=== PATIENT | female | born 1980 | race Hispanic/Latino ===

== ENCOUNTER 2021-01-17 14:45 | Emergency (ER) | payer OTHER ==
[~2021-01-17] VITALS: Ht 152.4 cm; Wt 99.8 kg
[2021-01-17 15:16] VITALS: BP 103/47
[2021-01-17 15:20] LABS: BASOPHILS % (AUTO) 0.4 % (0.0-5.0); EOSINOPHILS % (AUTO) 0.6 % (0.0-8.0); HEMATOCRIT 39.1 % (36-48); LYMPHOCYTES % (AUTO) 30.5 % (21.0-51.0); MEAN CORPUSCULAR HEMOGLOBIN 27.5 pg (27.0-33.0); MEAN CORPUSCULAR HGB CONC 32.2 g/dL (32.0-36.0); MEAN CORPUSCULAR VOLUME 85.2 fL (79-99); NEUTROPHILS % (AUTO) 62.9 % (40.0-77.0); PLATELET COUNT (AUTO) 296 K/uL (130-400); RED BLOOD CELL COUNT(AUTO) 4.59 MIL/uL (4.00-5.50); WHITE BLOOD COUNT (AUTO) 11.3 K/uL (4.8-10.8)
[2021-01-17 15:27] LABS: APPEARANCE,URINE Clear (CLEAR); BILIRUBIN,URINE Negative (NEGATIVE); COLOR,URINE Yellow (YELLOW); GLUCOSE, URINE (UA) Negative (NEGATIVE); KETONES,URINE Trace mg/dL (NEGATIVE); LEUKOCYTE ESTERASE ,URINE Trace (NEGATIVE); NITRATE,URINE Negative (NEGATIVE); OCCULT BLOOD,URINE Negative (NEGATIVE); PH,URINE 6.5 (5.0-8.0); PROTEIN,URINE Negative (NEGATIVE)
[2021-01-17 15:30] LABS: CREATININE 0.6 mg/dL (0.5-1.5); POTASSIUM 3.7 mmol/L (3.5-5.1)
[2021-01-17 15:34] LABS: ALBUMIN 3.6 g/dL (3.5-5.0); BILIRUBIN,TOTAL 0.3 mg/dL (0.2-1.0); TOTAL PROTEIN, SERUM 7.9 g/dL (6.0-8.3)
[2021-01-17 15:35] LABS: HCG,QUAL RESULT NEGATIVE (NEGATIVE)
[2021-01-17 15:38] LABS: BACTERIA,URINE Few /HPF (None Seen); RBC,URINE 0-1 /HPF (0-1)
[2021-01-17 15:39] LABS: MUCUS,URINE Rare LPF (None Seen); SQUAMOUS EPITHELIAL CELL,UR Few /HPF (0-2)
[2021-01-17 15:47] LABS: B-TYPE NATRIURETIC PEPTIDE 35 pg/mL (0-100)
[2021-01-17 15:48] LABS: AMPHET/METH SCREEN,URINE NEGATIVE (NEGATIVE); BARBITURATE SCREEN, URINE NEGATIVE (NEGATIVE); BENZODIAZEPINES SCREEN,URINE NEGATIVE (NEGATIVE); CANNABINOID SCREEN,URINE NEGATIVE (NEGATIVE); COCAINE SCREEN,URINE NEGATIVE (NEGATIVE); OPIATE SCREEN,URINE NEGATIVE (NEGATIVE); PHENCYCLIDINE SCREEN,URINE NEGATIVE (NEGATIVE)
[2021-01-17 17:39] VITALS: BP 112/58
== END 2021-01-17 18:02 | disposition home or self-care (01) ==
LOC: EDH 14:45
DX: R07.89 Other chest pain (principal); R03.0 Elevated blood-pressure reading, without diagnosis of hypertension; E66.9 Obesity, unspecified; Z88.0 Allergy status to penicillin; Z88.2 Allergy status to sulfonamides; Z68.41 Body mass index [BMI] 40.0-44.9, adult
CPT/HCPCS: 36415; 71045; 80053; 80305; 81001; 81025; 82550; 83880; 84484; 85025; 93005

== ENCOUNTER 2024-09-14 10:52 | Emergency (ER) | payer BC, OTHER ==
[~2024-09-14] VITALS: Ht 157.5 cm; Wt 99.8 kg
--- NOTE | 2024-09-14 11:08 | ERN ---
General Chief Complaint: Ankle Problem Stated Complaint: RIGHT ANKLE PAIN S/P FALL Time Seen by MD: 10:53 Time Seen by Midlevel: 10:53 Source: patient History of Present Illness Initial Comments 43-year-old female who presents to the emergency department due to right ankle pain onset yesterday. Patient reports she twisted her ankle last night, unable to bear weight. Has been taking ibuprofen without any relief. Denies any significant past medical history. Allergies: Coded Allergies: Penicillins (Unverified Allergy, Unknown, 01/17/21) Sulfa (Sulfonamide Antibiotics) (Unverified Allergy, Unknown, 01/17/21) Past Medical History Past Medical History: No Pertinent History Medical History Other: Obesity Past Surgical History: None Female( History) LMP: September 14, 2024 ROS Dictation Constitutional: Negative for fever,chills, and weight loss Eyes: Negative for injury, pain,redness, and discharge ENT: Negative for injury,pain or swelling Cardiovascular: Negative for chest pain, palpitations, and edema Respiratory: Negative for shortness of breath, cough, and wheezing, Abdomen/GI: Negative for abdominal pain, nausea, vomiting, diarrhea, and constipation Back: Negative for injury and pain : Negative for painful urination, bleeding or discharge MS/Extremity: Positive for right ankle pain Negative for injury and deformity Skin: Negative for rash, and discoloration Neuro: Negative for headache, weakness, numbness, tingling, and seizure Psych: Negative for suicide ideation, homicidal ideation, and hallucinations Physical Exam Physical Exam Dictation General: awake, alert, no acute distress Head/Face: Normocephalic, atraumatic Eyes: PERRL, EOMI, normal conjunctiva ENT: oral cavity clear, oral mucosa moist Neck: Supple, normal range of motion Cardiovascular: RRR, normal S1/S2 Respiratory: CTAB, no respiratory distress Skin: Warm, dry, normal turgor, no rash MS/Extremity: Pulses equal, no cyanosis, neurovascular intact, FROM. Tenderness to palpation of the medial aspect of the right ankle, normal range of motion of the right foot, painful range of motion of the right ankle, nonweightbearing, neurovascularly intact, no deformities Neuro: COAx4, GCS 15, strength 5/5, CN 2-12 intact, normal cerebellar exam Psych: Normal behavior, mood, and affect normal Results EKG/XRAY/US/CT/MRI X-RAY Comment REASON: injury, pain ORDERING PHYSICIAN: GIANFRANCO ABAD PROCEDURE: [id number] - ANKLE COMP 3VWS RT Exam Type: FOOT COMP 3+VWS RT, ANKLE COMP 3VWS RT Clinical Information: injury, pain Comparison: None Findings: The examination is unremarkable except for calcaneal spurs. No fractures or dislocations are seen. No radiopaque foreign bodies are noted. Soft tissues are preserved. IMPRESSION: Calcaneal spurs. DICTATED BY: RAJINDER RAJPUT MD DATE: 09/14/24 1221 REASON: injury, pain ORDERING PHYSICIAN: GIANFRANCO ABAD PROCEDURE: FT 3VW RT - FOOT COMP 3+VWS RT Exam Type: FOOT COMP 3+VWS RT, ANKLE COMP 3VWS RT Clinical Information: injury, pain Comparison: None Findings: The examination is unremarkable except for calcaneal spurs. No fractures or dislocations are seen. No radiopaque foreign bodies are noted. Soft tissues are preserved. IMPRESSION: Calcaneal spurs. DICTATED BY: RAJINDER RAJPUT MD DATE: 09/14/24 1221 MDM MDM: Differential diagnosis: Sprain, strain, fracture, dislocation Rationale: 43-year-old female who presents to the emergency department due to right ankle pain onset yesterday. Patient reports she twisted her ankle last night, unable to bear weight. Has been taking ibuprofen without any relief. Denies any significant past medical history. Per physical examination tenderness to palpation of the medial aspect of the right ankle, normal range of motion of the right foot, painful range of motion of the right ankle, nonweightbearing, neurovascularly intact, no deformities. X-rays obtained with no indication of fractures or dislocations. Patient was placed on a short posterior splint further right lower extremity, and crutches were provided. Patient was educated on findings and diagnosis. Advised to foll ow up with PCP. Return to the emergency department if any worsening symptoms. Patient verbalized understanding. Patient stable for discharge. There are no social concerns with this patient. I independently interpreted the test that were performed, results were reviewed by me and considered findings on radiology if ordered. Medical management and examination interpretation discussions were had by me with other qualified healthcare professionals as indicated for the patient's care. ED Course Orders Procedure Category Date Status Time Ankle Comp 3vws Rt RAD 09/14/24 Resulted 10:59 Foot Comp 3+Vws Rt RAD 09/14/24 Resulted 10:59 Ketorolac PHA 09/14/24 Complete Tromethamine 15mg/Ml 13:00 Posterior Ankle Splint [email or web address] 09/14/24 Complete 12:38 Crutches W/Training CPOE 09/14/24 Transmitted (Er) 12:38 Current Medications Medications (Trade) Dose Ordered Sig/Edward Route PRN Reason Start Time Stop Time Status Last Admin Dose Admin Ketorolac Tromethamine (toRADol) 15 mg ONCE ONCE IM 09/14/24 13:00 09/14/24 13:01 DC 09/14/24 12:47 Vital Signs Date Time Temp Pulse Resp B/P (MAP) Pulse Ox O2 Delivery O2 Flow Rate FiO2 09/14/24 13:12 98.1 72 20 138/68 97 Room Air* 0 21 09/14/24 11:24 98.1 75 20 143/74 97 Room Air* 0 21 09/14/24 10:53 98.1 76 20 143/74 97 Room Air 0 DX & DISP Disposition: Discharge Departure Impression: Primary Impression: Ankle sprain Condition: Stable Additional Instructions: Discharge home. Rest. Follow up with primary care [facility]North in 24 hours. Return to the ER for any acute changes or worsening symptoms. If any medications were prescribed take as directed. Okay to continue home medications unless otherwise discussed during your visit in the emergency room today. Patient was also advised to follow-up with primary care physician in 1 to 2 days for continued monitoring. Referrals: SELF,REFERRAL (PCP) I performed the substantive portion of the visit. I have reviewed and personally made and approve the management plan that is documented in the notes by myself or the [facility]. I acknowledge full responsibility for the patient's management plan. GIANFRANCO ABAD September 14, 2024 11:08
--- NOTE | 2024-09-14 12:25 | HMCIMG ---
Exam Type: FOOT COMP 3+VWS RT, ANKLE COMP 3VWS RT Clinical Information: injury, pain Comparison: None Findings: The examination is unremarkable except for calcaneal spurs. No fractures or dislocations are seen. No radiopaque foreign bodies are noted. Soft tissues are preserved. IMPRESSION: Calcaneal spurs.
[2024-09-14] MEDS: ketOROlac 15MG/ML VIAL (15MG/ML) IM ONE (12:47)
--- NOTE | 2024-09-14 13:09 | NUR ---
SPLINT AND CRUTCHES OREDERED FOR PT, PT TOLERATED WELL AND EDUCATED ON CRUTCHES USE
[2024-09-14 13:12] VITALS: BP 138/68; PULSE 72; RESP 20; TEMP 98.1; O2SAT 97
== END 2024-09-14 13:18 | disposition home or self-care (01) ==
LOC: EDH 10:52
DX: S93.401A Sprain of unspecified ligament of right ankle, initial encounter (principal); E66.9 Obesity, unspecified; Z88.0 Allergy status to penicillin; Z88.2 Allergy status to sulfonamides; X50.1XXA Overexertion from prolonged static or awkward postures, initial encounter; Y93.89 Activity, other specified; Y92.89 Other specified places as the place of occurrence of the external cause; Y99.8 Other external cause status
CPT/HCPCS: 99284; 29515; 73610; 73630; 96372; J1885

== ENCOUNTER 2025-03-21 18:58 | Emergency (ER) | payer BC ==
[~2025-03-21] VITALS: Ht 157.5 cm; Wt 106.1 kg
[2025-03-21 20:19] LABS: IMMATURE GRANULOCYTE ABSOLUTE 0.03 K/uL (0-1); NUCLEATED RED BLOOD CELLS 0.0 % (0.0-0.19); PLATELET COUNT (AUTO) 306 K/uL (130-400); RED BLOOD CELL COUNT(AUTO) 4.30 MIL/uL (4.00-5.50); RED CELL DISTRIBUTION WIDTH 14.1 % (11.0-15.5); WHITE BLOOD COUNT (AUTO) 8.3 K/uL (4.8-10.8)
[2025-03-21 20:33] LABS: CREATININE 0.5 mg/dL (0.5-1.0); GLOMERULAR FILTR. RATE CALC 119.0 mL/min (>90); GLUCOSE,RANDOM 98.0 mg/dL (70-105); SODIUM SERUM 138.0 mmol/L (136-145)
[2025-03-21 20:43] LABS: UREA NITROGEN, BLOOD 8.0 mg/dL (7-18)
[2025-03-21] MEDS: 0.9%NACL 1000ML 1,000 ML IV ONE (21:49)
--- NOTE | 2025-03-21 22:04 | HMCIMG ---
EXAM: CT Head Without IV contrast. CLINICAL HISTORY: Headache. TECHNIQUE: Axial computed tomography images of the head/brain without intravenous contrast. COMPARISON: None provided. FINDINGS: BRAIN: No evidence of acute hemorrhage. No mass lesion. No CT evidence for acute territorial infarct. No midline shift or extra-axial collections. VENTRICLES: No hydrocephalus. ORBITS: The orbits are unremarkable. SINUSES AND MASTOIDS: The paranasal sinuses and mastoid air cells are clear. BONES: No fracture. SOFT TISSUES: Unremarkable. IMPRESSION: No acute intracranial abnormality. /[place]
--- NOTE | 2025-03-21 22:23 | ERN ---
ED Note History of Present Illness Stated Complaint: HEADACHE Chief Complaint: Headache Time Seen by MD: 19:04 Time Seen by Midlevel: 19:04 Dictation: The patient is a 44-year-old female with no past medical history who presents to the emergency department with complaints of occipital headache onset Wednesday associated with nausea. Patient denies any trauma, denies any fevers, denies visual deficits. Allergies: Coded Allergies: Penicillins (Unverified Allergy, Unknown, 01/17/21) Sulfa (Sulfonamide Antibiotics) (Unverified Allergy, Unknown, 01/17/21) Past Medical History Past Medical History: No Pertinent History Additional Past Medical Hx: Obesity Surgical History: None LMP: Feb 23, 2025 RN Note Reviewed/Agreed w/PFSH: Yes Review of System Dictation Constitutional: Negative for fever,chills, and weight loss Eyes: Negative for injury, pain,redness, and discharge ENT: Negative for injury,pain or swelling Cardiovascular: Negative for chest pain, palpitations, and edema Respiratory: Negative for shortness of breath, cough, and wheezing, Abdomen/GI: Negative for abdominal pain, nausea, vomiting, diarrhea, and constipation Back: Negative for injury and pain : Negative for injury, bleeding and discharge MS/Extremity: Negative for injury and deformity Skin: Negative for rash, and discoloration Neuro: Negative for weakness, numbness, tingling, and seizure positive for headache Psych: Negative for suicide ideation, homicidal ideation, and hallucinations Initial Vital Sign VS Vital Signs Date Time Temp Pulse Resp B/P (MAP) Pulse Ox O2 Delivery O2 Flow Rate FiO2 03/21/25 19:01 97.3 61 18 148/64 100 Room Air 0 03/21/25 21:30 21 Physical Exam Dictation Vital Signs reviewed General Appearance: Alert, oriented x 3, no acute distress, well developed, nourished. Head and Face: non-traumatic. Eyes: PERRL, pink conjunctivas, eyelid no trauma, anterior chamber with arcus senilis. Ears: Pinnas intact and no signs of trauma or erythema ear canals clear and no discharge TM no erythema Nose: No discharge, no bleeding. Oropharynx: Mouth normal, tongue pink. pharynx clear,no erythema, tonsils no exudates, no abscesses noted, mucous membrane moist Neck: Supple, non-tender, no thyromegaly, no masses, no JVD, no bruits Breast:Deferred Chest:No tenderness, no crepitus, no paradoxical movement, no retractions Lungs:Clear, well-ventilated, symmetric, no rales, no wheezing, no rhonchi, no stridor, good breath sounds bilaterally Heart: Regular rate, regular rhythm, no murmur, no gallops Vascular: no peripheral edema, Abdomen: Soft, positive bowel sounds, nondistended, no guarding, nontender, no rebound, no masses no hepatomegaly, no splenomegaly, no Jarquin's sign, no hernias. Rectal: Deferred Genital: Deferred Neurological: Normal speech, motor function intact, sensory function intact , upper extremities equal in strength, lower extremities equal in strength Musculoskeletal: Neck nontender, full range of motion, back nontender, full range of motion, Extremities: nontender, full range of motion Skin: Color pink, dry, no turgor, no rash, no lacerations, no abrasions, no contusions. Lymphatic: Deferred Results (Laboratory/Radiology) Laboratory/Radiology Laboratory Tests Test 03/21/25 20:09 White Blood Count 8.3 K/uL (4.8-10.8) Red Blood Count 4.30 MIL/uL (4.00-5.50) Hemoglobin 12.1 g/dL (12.0-16.0) Hematocrit 37.2 % (36-48) Mean Corpuscular Volume 86.5 fL (79-99) Mean Corpuscular Hemoglobin 28.1 pg (27.0-33.0) Mean Corpuscular Hemoglobin Concent 32.5 g/dL (32.0-36.0) Red Cell Distribution Width 14.1 % (11.0-15.5) Platelet Count 306 K/uL (130-400) Mean Platelet Volume 10.3 fL (7.5-10.5) Immature Granulocyte % (Auto) 0.4 % (0-1) Neutrophils (%) (Auto) 61.5 % (40.0-77.0) Lymphocytes (%) (Auto) 31.1 % (21.0-51.0) Monocytes (%) (Auto) 5.8 % (3.0-13.0) Eosinophils (%) (Auto) 1.0 % (0.0-8.0) Basophils (%) (Auto) 0.2 % (0.0-5.0) Neutrophils # (Auto) 5.1 K/uL (1.8-7.7) Lymphocytes # (Auto) 2.6 K/uL (1.0-4.8) Monocytes # (Auto) 0.5 K/uL (0.1-1.0) Eosinophils # (Auto) 0.08 K/uL (0.00-0.70) Basophils # (Auto) 0.02 K/uL (0.00-0.20) Absolute Immature Granulocyte (auto 0.03 K/uL (0-1) Nucleated Red Blood Cells 0.0 % (0.0-0.19) Urine HCG, Qualitative NEGATIVE (NEGATIVE) Sodium Level 138 mmol/L (136-145) Potassium Level 3.9 mmol/L (3.5-5.1) Chloride Level 104 mmol/L (101-111) Carbon Dioxide Level 29 mmol/L (21-32) Blood Urea Nitrogen 8 mg/dL (7-18) Creatinine 0.5 mg/dL (0.5-1.0) Glomerular Filtration Rate Calc 119 mL/min (>90) Random Glucose 98 mg/dL (70-105) Total Calcium 8.8 mg/dL (8.5-10.1) REASON: headache ORDERING PHYSICIAN: LAZARUS ROMERO PROCEDURE: HEAD WO - CT HEAD/BRAIN W/O CONTRAST EXAM: CT Head Without IV contrast. CLINICAL HISTORY: Headache. TECHNIQUE: Axial computed tomography images of the head/brain without intravenous contrast. COMPARISON: None provided. FINDINGS: BRAIN: No evidence of acute hemorrhage. No mass lesion. No CT evidence for acute territorial infarct. No midline shift or extra-axial collections. VENTRICLES: No hydrocephalus. ORBITS: The orbits are unremarkable. SINUSES AND MASTOIDS: The paranasal sinuses and mastoid air cells are clear. BONES: No fracture. SOFT TISSUES: Unremarkable. IMPRESSION: No acute intracranial abnormality. /[place] Labs Reviewed?: Yes ED Course ED Course Orders Procedure Category Date Status Time Cbc With Differential LAB 03/21/25 Complete 19:15 ,Urine Test LAB 03/21/25 Complete 19:15 Basic Metabolic Panel LAB 11/19/25 Complete 19:15 0.9%Nacl 1000ml (Ns PHA 03/21/25 Complete 1000ml) 19:30 Acetaminophen 500mg PHA 03/21/25 Complete Tab (Tylenol 500mg T 19:30 Metoclopramide 10 PHA 03/21/25 Complete Mg/2 Ml Vial (Reglan 1 19:30 Diphenhydramine Hcl PHA 03/21/25 Complete (Benadryl Inj) 19:30 Ct Head/Brain W/O CT 03/21/25 Resulted Contrast 20:46 Current Medications Medications (Trade) Dose Ordered Sig/Edward Route PRN Reason Start Time Stop Time Status Last Admin Dose Admin Acetaminophen (TYLenol 500MG TAB) 1,000 mg ONCE ONCE PO 03/21/25 19:30 03/21/25 19:31 DC 03/21/25 21:49 Diphenhydramine HCl (BENAdryl INJ) 25 mg ONCE ONCE IV 03/21/25 19:30 03/21/25 19:31 DC 03/21/25 21:49 Metoclopramide HCl (regLAN 10MG IV) 10 mg ONCE ONCE IVP 03/21/25 19:30 03/21/25 19:31 DC 03/21/25 21:49 Sodium Chloride 1,000 ml @ 0 mls/hr ONCE ONCE IV 03/21/25 19:30 03/21/25 19:31 DC 03/21/25 21:49 Vital Signs Date Time Temp Pulse Resp B/P (MAP) Pulse Ox O2 Delivery O2 Flow Rate FiO2 03/21/25 21:30 97.5 64 18 142/60 99 Room Air* 0 21 03/21/25 19:01 97.3 61 18 148/64 100 Room Air 0 Medical Decision Making MDM The patient is a 44-year-old female with no past medical history who presents to the emergency department with complaints of occipital headache onset Wednesday associated with nausea. Patient denies any trauma, denies any fevers, denies visual deficits. CBC showed no leukocytosis, no anemia, chemistry showed no electrolyte imbalance, normal renal function, CT head showed no acute pathology. On physical exam patient is in no acute distress. Received IV pain medications. Patient continues neurologically intact, stable vital signs. We will be discharged to follow up with PCP. Differential diagnosis: Migraine headache, dehydration, intracerebral hemorrhage Need for hospitalization: Patient does not meet criteria for hospitalization. There are no social concerns with this patient. DX & DISP Disposition: Discharge Departure Impression: Primary Impression: Headache Condition: Stable Additional Instructions: Your labs were unremarkable. Your CT head was unremarkable. Please follow up with the primary doctor in 1-2 days. If anything worsens please return to ER. FOLLOW-UP WITH PRIMARY CARE PROVIDER IN 1 TO 2 DAYS. TAKE MEDICATIONS DIRECTED HERE IN THE EMERGENCY ROOM. OKAY TO CONTINUE HOME MEDICATIONS UNLESS OTHERWISE DISCUSSED DURING YOUR VISIT IN THE EMERGENCY ROOM TODAY. RETURN TO YOUR NEAREST EMERGENCY ROOM IF SYMPTOMS WORSEN OR IF THERE IS NO IMPROVEMENT. CALL 911 IF YOU NEED IMMEDIATE ASSISTANCE. TAKE TYLENOL [id number] NEEDED AND IF NO CONTRAINDICATIONS ARE PRESENT. INCREASE ORAL HYDRATION. A WOUND CULTURE OR URINE CULTURE WAS ORDERED HERE IN THE EMERGENCY ROOM DEPARTMENT PLEASE FOLLOW-UP WITH PRIMARY CARE PROVIDER AND ADVISE THEM TO GET REPEAT PORTS FROM OUR FACILITY. IF YOU HAD ANY COOPER WRAP/SPLINTS THAT WERE APPLIED HERE, PLEASE DO NOT REMOVE THEM UNTIL YOU SEE YOUR PRIMARY CARE OR SPECIALTY. Referrals: ALIE TAYLOR (PCP) Time of Disposition: 22:22 I have reviewed the case, and I agree with, Diagnosis and Plan LAZARUS ROMERO Mar 21, 2025 22:23
[2025-03-21 22:54] VITALS: BP 138/63; PULSE 61; RESP 18; TEMP 97.5; O2SAT 99
== END 2025-03-21 22:45 | disposition home or self-care (01) ==
LOC: EDH 18:58
DX: R51.9 Headache, unspecified (principal); R11.0 Nausea; E66.9 Obesity, unspecified; Z88.0 Allergy status to penicillin; Z88.2 Allergy status to sulfonamides
CPT/HCPCS: 99284; 96374; 70450; 96361; 96375; 80048; 85025; 81025; 36415; J1200; J7030; J2765